=== PATIENT | female | born 1975 | race African-American/Black ===

== ENCOUNTER 2020-02-27 15:34 | Emergency (ER) | payer SELFPAY ==
[2020-02-27] MEDS ORDERED: methylPREDNISolone Sod Succ/PF 125 MG/2 ML VIAL ONE (16:24)
[2020-02-27] MEDS ORDERED: Famotidine/PF 20 mg/2ml Vial ONE (16:24)
== END 2020-02-27 19:30 | disposition home or self-care (01) ==
LOC: ERS 15:34
DX: T78.40XA Allergy, unspecified, initial encounter (principal)
CPT/HCPCS: 96374; 96375; J2930; S0028